=== PATIENT | female | born 1960 | race Caucasian/White ===

== ENCOUNTER 2023-09-23 10:31 | Outpatient (OUT) | payer MEDICARE, OTHER, SELFPAY | END 2023-09-23 10:32 | disposition home or self-care (01) | LOC: PST 10:32 | PROVIDERS: PCP Internal Medicine; Visit Provider Surgery | DX: Z01.818 Encounter for other preprocedural examination (principal); Z12.11 Encounter for screening for malignant neoplasm of colon; R13.10 Dysphagia, unspecified ==

== ENCOUNTER 2023-09-30 08:47 | Day surgery (SDC) | payer MEDICARE, OTHER, SELFPAY ==
[2023-09-30 09:11] VITALS: BMI 40.1
[2023-09-30] MEDS: LACTATED RINGER'S SOLUTION 1,000 ML 50 ML IV (09:19)
--- NOTE | 2023-09-30 10:33 | W.PM.PROCNOT ---
Date of procedure: 09/30/23 Pre-op diagnosis: dysphagia, poor gastric emptying, diagnostic colonoscopy- positive FIT test Post-op diagnosis: other (normal colonoscopy, small hiatal hernia and mild reflux esophagitis ) Procedure: last colonoscopy never. PROCEDURE: EGD The patient was taken to the endoscopy suite and under monitored conditions was given adequate anesthesia until the patient was sedated.? The endoscope was passed easily into the oropharynx and into the upper esophagus.? The esophagus was completely normal except for some mild esophagitis at the z-line with an associated small hiatal hernia, z-line was at 28cm approx.? The scope entered the stomach easily which distended well.? The scope was passed through the pylorus and the duodenal bulb and 1st portion of the duodenum were within normal limits.? No abnormalities identified.? The body of the stomach was carefully inspected and there were no abnormalities identified.??? The scope was retroflexed and again evidence of a small hiatal hernia was noted.? There was no gastritis in the antrum of the stomach. Biopsies were taken in the antrum for H. Pylori testing.? The patient tolerated the procedure well and was positioned then for the colonoscopy. Colonoscopy note PROCEDURE: The patient was continued under MAC sedation per the anesthesia team.? The patient's SPO2 remained above 90% throughout the procedure. The colonoscope was inserted per rectum and advanced under direct vision to the cecum without difficulty.? The prep was good. Findings: Terminal ileum os: normal Cecum/Ascending colon: normal Transverse colon: normal Descending/Sigmoid colon: normal Rectum/Anus: examined in normal and retroflexed positions and was normal Withdrawal Time was (minutes): 9 The colon was decompressed and the scope was removed.? The patient tolerated the procedure well. Recommendations/Plan: 1.? Lifestyle and dietary modifications as discussed, small meals and chew food well. Hydrate regularly. 2.? F/U Biopsies of antrum. 3.? F/U In Office after obtaining UGI 4.? Repeat colonoscopy in 10 years. 5. Discussed with the family Anesthesia: MAC Surgeon: Ravi Clark Estimated blood loss (mL): 1 Pathology: other (H. Pylori biopsy ) Condition: stable Disposition: PACU
[2023-09-30 11:06] VITALS: BP 90/47; PULSE 70; TEMP 36.8; O2SAT 95
[2023-09-30 11:21] VITALS: BP 117/76; PULSE 66; O2SAT 100
[2023-09-30 11:35] VITALS: BP 122/84; PULSE 68; O2SAT 100
== END 2023-09-30 11:46 | disposition home or self-care (01) ==
PROVIDERS: PCP Internal Medicine; Visit Provider Surgery
PROC: (CPT 43239; principal; 2023-09-30 10:50)
DX: Z12.11 Encounter for screening for malignant neoplasm of colon (principal); R13.10 Dysphagia, unspecified; K44.9 Diaphragmatic hernia without obstruction or gangrene; K20.90 Esophagitis, unspecified without bleeding; K29.50 Unspecified chronic gastritis without bleeding; B96.81 Helicobacter pylori [H. pylori] as the cause of diseases classified elsewhere; Z80.8 Family history of malignant neoplasm of other organs or systems; K31.89 Other diseases of stomach and duodenum; K31.9 Disease of stomach and duodenum, unspecified; E66.9 Obesity, unspecified; Z68.41 Body mass index [BMI] 40.0-44.9, adult; M19.90 Unspecified osteoarthritis, unspecified site; J30.9 Allergic rhinitis, unspecified
CPT/HCPCS: 43239; G0121; 88305; 88342; J2704

== ENCOUNTER 2023-10-02 06:46 | Outpatient (OUT) | payer MEDICARE, OTHER, SELFPAY ==
--- NOTE | 2023-10-02 06:56 | CT_ITS ---
The [address] [address] Patient Name: LUZMA SRINIVASAN MRN: [id number] date: 1960 Sex: F Assigned Patient Location: LAB Current Patient Location: LAB Accession/Order Number: [id number] Exam Date: 10/02/2023 08:22 Report Date: 10/02/2023 16:15 At the request of: ALEXIS CHAVIS Procedure: CT pelvis w con EXAMINATION: CT pelvis w con HISTORY: Adnexal Mass N94.99 ; follow-up right ovarian cyst COMPARISON: Ultrasound pelvis 06/04/2022 TECHNIQUE: After obtaining the patient's consent, CT images of the pelvis were obtained with non-ionic contrast. Multi-planar/3-D images were created to optimize visualization of vascular anatomy. Dose reduction techniques were achieved by using automated exposure control and/or adjustment of mA and/or kV according to patient size and/or use of iterative reconstruction technique. FINDINGS: AORTO-ILIAC: No aneurysm or dissection. No significant stenosis or occlusion. URINARY BLADDER: No visible focal wall thickening, lesion, or calculus. LYMPH NODES: No adenopathy. BOWL: No abnormality of the visible bowl. PELVIC ORGANS: Superior-lateral to the right ovary is a 3.3 x 1.8 x 1.9 cm low-density structure, 13 Hounsfield units in density, suspected to represent a paraovarian cyst. Unremarkable uterus and ovaries. BONES: No bony lesion or fracture. OTHER: Negative. CT/CT pelvis w con IMPRESSION: 1. Nonspecific low-density oval structure adjacent right ovary; nonspecific but favoring a paraovarian cyst. Consider follow-up ultrasound evaluation. This was not present on the 06/04/2022 comparison ultrasound study. Electronically authenticated by: CRYSTAL WHITE Date: 10/02/2023 16:15
[2023-10-02 07:13] LABS: Estimated GFR (African America >60 (>=60); Estimated GFR (Non-African Ame >60 (>=60)
== END 2023-10-02 06:47 | disposition home or self-care (01) ==
LOC: LAB 06:46
PROVIDERS: PCP Internal Medicine; Visit Provider Nurse Practitioner Family
DX: N94.89 Other specified conditions associated with female genital organs and menstrual cycle (principal)
CPT/HCPCS: 36415; 72193; 82565; Q9967

== ENCOUNTER 2023-10-13 06:24 | Outpatient (OUT) | payer MEDICARE, OTHER, SELFPAY ==
--- NOTE | 2023-10-13 06:15 | NM_ITS ---
The [address] [address] Patient Name: LUZMA SRINIVASAN MRN: [id number] date: 1960 Sex: F Assigned Patient Location: [place] Current Patient Location: [place] Accession/Order Number: [id number] Exam Date: 10/13/2023 06:15 Report Date: 10/13/2023 13:15 At the request of: EDDI LANTIGUA Procedure: CA gastric emptying study NUCLEAR MEDICINE GASTRIC EMPTYING SCAN HISTORY: Abdominal pain and pressure after eating. COMPARISON: None. TECHNIQUE: The patient ingested a meal of eggs labeled with 1.0 mCi of technetium-99 sulfur colloid and images were performed of the stomach over 4 hours. Gastric retention was calculated. FINDINGS: At one hour, there was 100% gastric retention. The normal range is 30% to 90%. At two hours, there was 78% gastric retention. The normal range 0% to 60%. At four hours, there was 7% gastric retention. The normal range 0% to 10%. CA/CA gastric emptying study IMPRESSION: Delayed gastric emptying through 2 hours with normal gastric emptying at 4 hours. Electronically authenticated by: OSIRIS HUTSON Date: 10/13/2023 13:15
== END 2023-10-13 06:25 | disposition home or self-care (01) ==
LOC: NM 06:24
PROVIDERS: PCP Internal Medicine; Visit Provider Surgery
DX: K30 Functional dyspepsia (principal)
CPT/HCPCS: 78264; A9541

== ENCOUNTER 2024-12-09 08:25 | Outpatient (OUT) | payer MEDICARE, OTHER, SELFPAY | END 2024-12-09 08:26 | disposition home or self-care (01) | LOC: CARD 08:26 | PROVIDERS: PCP Internal Medicine; Visit Provider Nurse Practitioner Family | DX: R00.2 Palpitations (principal); R06.02 Shortness of breath ==